=== PATIENT | female | born 1930 | race Caucasian/White ===

== ENCOUNTER 2016-08-14 15:20 | Inpatient (IN) | payer MEDICARE ==
[~2016-08-14] VITALS: Ht 157.5 cm; Wt 53.2 kg
[2016-08-14] MEDS ORDERED: RIVA10TA PO (15:37)
[2016-08-14] MEDS ORDERED: AMIO200T42 PO (15:37)
[2016-08-14] MEDS ORDERED: LEVO100T5 PO (15:37)
[2016-08-14] MEDS ORDERED: PRED5TAB25 PO (15:37)
[2016-08-14] MEDS ORDERED: SODIUM CHLORIDE 0.9% 1,000 ML IV ONE (15:44)
[2016-08-14] MEDS ORDERED: ONDANSETRON 2MG/ML, 2ML IVPush ONE (16:00)
[2016-08-14] MEDS ORDERED: SODIUM CHLORIDE 0.9%, 500ML IVBOLUS ONE (16:00)
[2016-08-14] MEDS ORDERED: MORPHINE SULFATE 4 MG/ML, 1ML IVPush PRN (16:00)
[2016-08-14] MEDS ORDERED: FAMOTIDINE 20 MG/2 ML IVP ONE (16:00)
[2016-08-14] MEDS ORDERED: ONDANSETRON 2MG/ML, 2ML ONE (16:02)
[2016-08-14] MEDS ORDERED: FAMOTIDINE 20 MG/2 ML ONE (16:02)
[2016-08-14] MEDS ORDERED: MORPHINE SULFATE 4 MG/ML, 1ML ONE (16:02)
[2016-08-14] MEDS ORDERED: HYDROmorphone 1 MG/ML, 1ML ONE (16:09)
[2016-08-14] MEDS ORDERED: HYDROmorphone 1 MG/ML, 1ML IV ONE (16:30)
[2016-08-14 16:36] LABS: BLOOD UREA NITROGEN 19 mg/dL (7-18)
[2016-08-14 16:42] LABS: ASPARTATE AMINO TRANSFERASE 11 U/L (15-37)
[2016-08-14 16:45] LABS: IS PT STATUS REG ER OR PRE ER? YES
[2016-08-14] MEDS ORDERED: DILTIAZEM 125 MG in DEXTROSE 5% 100 ML IV SCH (17:55)
[2016-08-14] MEDS ORDERED: DILTIAZEM 5 MG/ML, 5ML IV ONE (18:00)
[2016-08-14] MEDS ORDERED: NS + 20MEQ KCL 1,000 ML IV SCH (18:29)
[2016-08-14] MEDS ORDERED: DILTIAZEM 5 MG/ML, 5ML IVPush PRN (18:30)
[2016-08-14] MEDS ORDERED: HYDROcodone/APAP 5/325 TABLET PO PRN (18:30)
[2016-08-14] MEDS ORDERED: ACETAMINOPHEN 325 MG TABLET PO PRN (18:30)
[2016-08-14] MEDS: DILTIAZEM 60 MG TABLET PO SCH ×2 (18:30→21:00)
[2016-08-14] MEDS ORDERED: morphine SULFATE 10 MG/ML, 1ML IVPush PRN (18:30)
[2016-08-14] MEDS: NICOTINE 14MG/24 HR PATCH.TD24 TD SCH (18:30)
[2016-08-14] MEDS ORDERED: DOCUSATE 100 MG CAPSULE PO PRN (18:30)
[2016-08-14 20:42] VITALS: BP 88/58
[2016-08-14] MEDS ORDERED: PREDNISOLONE MC SCH (21:00)
[2016-08-14] MEDS: LACTULOSE 10 GM/15 ML UDC PO SCH (22:49)
[2016-08-14] MEDS ORDERED: PNEUMOCOCCAL 23 VACCINE IM-VACC ONE (23:30)
[2016-08-15] VITALS (9 sets, daily range): BP systolic 61–109; BP diastolic 41–73
[2016-08-15] MEDS: LACTULOSE 10 GM/15 ML UDC PO SCH (02:04)
[2016-08-15 05:39] LABS: BLOOD UREA NITROGEN 21 mg/dL (7-18)
[2016-08-15 05:48] LABS: IS PT STATUS REG ER OR PRE ER? NO
[2016-08-15] MEDS: LEVOTHYROXINE 100 MCG TABLET PO SCH (06:05)
[2016-08-15] MEDS ORDERED: MAGNESIUM SULFATE PMX 2GM/50ML 50 ML IV ONE (07:30)
[2016-08-15] MEDS ORDERED: BISACODYL 10 MG SUPP PR PRN (07:30)
[2016-08-15] MEDS ORDERED: FUROSEMIDE 20 MG/2 ML IV ONE (07:30)
[2016-08-15] MEDS ORDERED: RIVAROXABAN 10 MG TABLET PO SCH (09:00)
[2016-08-15] MEDS: POLYETHYLENE GLYCOL 17 GM PACKET PO PRN (09:07)
[2016-08-15] MEDS: AMIODARONE 200 MG TABLET PO SCH (09:08)
[2016-08-15] MEDS: DILTIAZEM 60 MG TABLET PO SCH ×3 (09:08→20:44)
[2016-08-15] MEDS: prednisOLONE 15 MG/5 ML ORAL SOLN PO SCH (09:08)
[2016-08-15] MEDS: SENNA/DOCUSATE TABLET PO SCH (09:08)
[2016-08-15] MEDS ORDERED: ALBUTEROL SULFATE 2.5 MG/3 ML ONE ×2 (11:01→14:12)
[2016-08-15] MEDS: ONDANSETRON 2MG/ML, 2ML IVPush PRN (14:03)
[2016-08-15] MEDS: CEFTRIAXONE PMX 1GM/50ML 50 ML IV SCH (14:26)
[2016-08-15] MEDS: ALBUTEROL SULFATE 2.5 MG/3 ML NPPB SCH ×2 (14:45→21:00)
[2016-08-15] MEDS: AZITHROMYCIN 500 MG in SODIUM CHLORIDE 0.9% 250 ML IV SCH (15:02)
[2016-08-15 15:57] LABS: ABG COLLECTION SITE RIGHT RADIAL; COLLATERAL CIRCULATION TESTING NORMAL
[2016-08-15] MEDS ORDERED: SODIUM CHLORIDE 0.9%, 500ML IVBOLUS ONE ×2 (16:00→17:00)
[2016-08-15 16:09] LABS: BLOOD UREA NITROGEN 18 mg/dL (7-18)
[2016-08-15] MEDS: NICOTINE 14MG/24 HR PATCH.TD24 TD SCH (18:21)
[2016-08-16 03:01] VITALS: BP 93/59
[2016-08-16 05:09] LABS: BLOOD UREA NITROGEN 18 mg/dL (7-18)
[2016-08-16] MEDS: LEVOTHYROXINE 100 MCG TABLET PO SCH (06:32)
[2016-08-16 08:56] VITALS: BP 92/60
[2016-08-16] MEDS: ALBUTEROL SULFATE 2.5 MG/3 ML NPPB SCH ×3 (09:00→20:49)
[2016-08-16] MEDS ORDERED: OMNIPAQUE 350 MG/ML, 100ML BOTTLE ONE (09:41)
[2016-08-16] MEDS: prednisOLONE 15 MG/5 ML ORAL SOLN PO SCH (09:55)
[2016-08-16] MEDS: SENNA/DOCUSATE TABLET PO SCH (09:55)
[2016-08-16] MEDS: AMIODARONE 200 MG TABLET PO SCH (09:55)
[2016-08-16] MEDS ORDERED: AMIODARONE 150 MG in DEXTROSE 5% 100 ML IV ONE (11:00)
[2016-08-16] MEDS ORDERED: FILTER 0.22 MICRON FOR AMIODARONE IV PRN (11:00)
[2016-08-16 13:51] VITALS: BP 71/37
[2016-08-16] MEDS: CEFTRIAXONE PMX 1GM/50ML 50 ML IV SCH (16:10)
[2016-08-16] MEDS: AZITHROMYCIN 500 MG in SODIUM CHLORIDE 0.9% 250 ML IV SCH (16:47)
[2016-08-16] MEDS: ONDANSETRON 2MG/ML, 2ML IVPush PRN (17:39)
[2016-08-16 17:50] VITALS: BP 111/78
[2016-08-16 17:58] VITALS: BP 106/71
[2016-08-16] MEDS: NICOTINE 14MG/24 HR PATCH.TD24 TD SCH (18:03)
[2016-08-16 18:39] VITALS: BP 119/80
[2016-08-16] MEDS: RIVAROXABAN 10 MG TABLET PO SCH (19:30)
[2016-08-17 01:15] VITALS: BP 105/65
[2016-08-17 05:05] LABS: BLOOD UREA NITROGEN 12 mg/dL (7-18)
[2016-08-17] MEDS: LEVOTHYROXINE 100 MCG TABLET PO SCH (06:33)
[2016-08-17] MEDS: ALBUTEROL SULFATE 2.5 MG/3 ML NPPB SCH ×3 (06:55→19:56)
[2016-08-17 07:46] VITALS: BP 93/56
[2016-08-17] MEDS: prednisOLONE 15 MG/5 ML ORAL SOLN PO SCH (09:10)
[2016-08-17] MEDS: AMIODARONE 200 MG TABLET PO SCH (09:10)
[2016-08-17] MEDS: SENNA/DOCUSATE TABLET PO SCH (09:10)
[2016-08-17 13:51] VITALS: BP 85/45
[2016-08-17] MEDS: DOXYCYCLINE 100 MG in DEXTROSE 5% 250 ML IV SCH (13:56)
[2016-08-17] MEDS: CEFTRIAXONE PMX 1GM/50ML 50 ML IV SCH (15:22)
[2016-08-17] MEDS: RIVAROXABAN 10 MG TABLET PO SCH (16:30)
[2016-08-17] MEDS: NICOTINE 14MG/24 HR PATCH.TD24 TD SCH (18:12)
[2016-08-17 18:54] VITALS: BP 98/62
[2016-08-18] MEDS: DOXYCYCLINE 100 MG in DEXTROSE 5% 250 ML IV SCH ×3 (00:06→23:56)
[2016-08-18 01:57] VITALS: BP 100/69
[2016-08-18] MEDS: LEVOTHYROXINE 100 MCG TABLET PO SCH (05:20)
[2016-08-18 05:38] LABS: BLOOD UREA NITROGEN 14 mg/dL (7-18)
[2016-08-18 07:10] VITALS: BP 97/63
[2016-08-18] MEDS: ALBUTEROL SULFATE 2.5 MG/3 ML NPPB SCH ×3 (09:38→20:29)
[2016-08-18 10:27] VITALS: BP 107/70
[2016-08-18] MEDS: AMIODARONE 200 MG TABLET PO SCH (10:33)
[2016-08-18] MEDS: SENNA/DOCUSATE TABLET PO SCH (10:33)
[2016-08-18] MEDS: prednisOLONE 15 MG/5 ML ORAL SOLN PO SCH (10:33)
[2016-08-18 13:27] VITALS: BP 115/70
[2016-08-18] MEDS: CEFTRIAXONE PMX 1GM/50ML 50 ML IV SCH (14:40)
[2016-08-18] MEDS: RIVAROXABAN 10 MG TABLET PO SCH (16:30)
[2016-08-18] MEDS: NICOTINE 14MG/24 HR PATCH.TD24 TD SCH (16:58)
[2016-08-18 18:25] VITALS: BP 99/63
[2016-08-19 01:58] VITALS: BP 99/64
[2016-08-19] MEDS: LEVOTHYROXINE 100 MCG TABLET PO SCH (06:15)
[2016-08-19] MEDS: ALBUTEROL SULFATE 2.5 MG/3 ML NPPB SCH ×3 (07:35→19:30)
[2016-08-19] MEDS: SENNA/DOCUSATE TABLET PO SCH (08:24)
[2016-08-19] MEDS: AMIODARONE 200 MG TABLET PO SCH (08:24)
[2016-08-19] MEDS: prednisOLONE 15 MG/5 ML ORAL SOLN PO SCH (08:25)
[2016-08-19 08:31] VITALS: BP 110/72
[2016-08-19] MEDS: DOXYCYCLINE 100 MG in DEXTROSE 5% 250 ML IV SCH ×2 (12:22→23:31)
[2016-08-19] MEDS: POLYETHYLENE GLYCOL 17 GM PACKET PO PRN (13:52)
[2016-08-19 13:54] VITALS: BP 108/73
[2016-08-19] MEDS: CEFTRIAXONE PMX 1GM/50ML 50 ML IV SCH (13:57)
[2016-08-19] MEDS: RIVAROXABAN 10 MG TABLET PO SCH (16:30)
[2016-08-19] MEDS: NICOTINE 14MG/24 HR PATCH.TD24 TD SCH (17:29)
[2016-08-19 19:49] VITALS: BP 122/79
[2016-08-20 01:43] VITALS: BP 138/90
[2016-08-20] MEDS: LEVOTHYROXINE 100 MCG TABLET PO SCH (05:23)
[2016-08-20 07:10] VITALS: BP 115/80
[2016-08-20] MEDS: ALBUTEROL SULFATE 2.5 MG/3 ML NPPB SCH ×3 (08:05→19:20)
[2016-08-20] MEDS ORDERED: METOPROLOL TARTRATE 50 MG TABLET ONE (08:07)
[2016-08-20] MEDS: METOPROLOL TARTRATE 25 MG TABLET PO SCH ×2 (08:17→17:31)
[2016-08-20] MEDS: AMIODARONE 200 MG TABLET PO SCH (08:17)
[2016-08-20] MEDS: prednisOLONE 15 MG/5 ML ORAL SOLN PO SCH (08:17)
[2016-08-20] MEDS: SENNA/DOCUSATE TABLET PO SCH (08:17)
[2016-08-20] MEDS: DOXYCYCLINE 100 MG in DEXTROSE 5% 250 ML IV SCH (11:28)
[2016-08-20] MEDS: CEFTRIAXONE PMX 1GM/50ML 50 ML IV SCH (13:59)
[2016-08-20 14:10] VITALS: BP 91/61
[2016-08-20] MEDS: RIVAROXABAN 10 MG TABLET PO SCH (16:30)
[2016-08-20] MEDS: NICOTINE 14MG/24 HR PATCH.TD24 TD SCH (17:38)
[2016-08-20 20:21] VITALS: BP 108/67
[2016-08-21] MEDS: DOXYCYCLINE 100 MG in DEXTROSE 5% 250 ML IV SCH ×2 (00:02→12:41)
[2016-08-21 02:50] VITALS: BP 115/77
[2016-08-21 05:58] VITALS: BP 100/72
[2016-08-21] MEDS: METOPROLOL TARTRATE 25 MG TABLET PO SCH ×2 (05:58→17:39)
[2016-08-21] MEDS: LEVOTHYROXINE 100 MCG TABLET PO SCH (06:00)
[2016-08-21 06:57] VITALS: BP_SYST 106; BP_DIAS 63; BP_DIAS 73
[2016-08-21] MEDS: ALBUTEROL SULFATE 2.5 MG/3 ML NPPB SCH ×2 (09:34→15:46)
[2016-08-21] MEDS: AMIODARONE 200 MG TABLET PO SCH (10:01)
[2016-08-21] MEDS: SENNA/DOCUSATE TABLET PO SCH (10:01)
[2016-08-21] MEDS: prednisOLONE 15 MG/5 ML ORAL SOLN PO SCH (10:01)
[2016-08-21 13:13] VITALS: BP 94/62
[2016-08-21] MEDS: CEFTRIAXONE PMX 1GM/50ML 50 ML IV SCH (14:27)
[2016-08-21] MEDS: RIVAROXABAN 10 MG TABLET PO SCH (16:30)
[2016-08-21] MEDS: NICOTINE 14MG/24 HR PATCH.TD24 TD SCH (17:39)
[2016-08-21 19:03] VITALS: BP 104/67
[2016-08-21] MEDS ORDERED: ALBUTEROL SULFATE 2.5 MG/3 ML NPPB PRN (21:00)
[2016-08-21] MEDS: ONDANSETRON 2MG/ML, 2ML IVPush PRN (22:02)
[2016-08-22] MEDS: DOXYCYCLINE 100 MG in DEXTROSE 5% 250 ML IV SCH (00:24)
[2016-08-22 01:27] VITALS: BP 114/73
[2016-08-22] MEDS: METOPROLOL TARTRATE 25 MG TABLET PO SCH (05:35)
[2016-08-22] MEDS: LEVOTHYROXINE 100 MCG TABLET PO SCH (05:35)
[2016-08-22] MEDS ORDERED: CEFD300C37 PO (07:35)
[2016-08-22] MEDS ORDERED: LACT1CAP24 PO (07:35)
[2016-08-22] MEDS ORDERED: PRED15SO3 PO (07:35)
[2016-08-22] MEDS ORDERED: NICO1PAT4 TD (07:35)
[2016-08-22] MEDS ORDERED: SENN1TAB7 PO (07:35)
[2016-08-22] MEDS ORDERED: DOXY100C2 PO (07:35)
[2016-08-22] MEDS ORDERED: METO25TA91 PO (07:40)
[2016-08-22] MEDS ORDERED: POLY17PO5 PO (07:48)
[2016-08-22] MEDS ORDERED: METOPROLOL SUCCINATE 25 MG TAB.ER.24H PO SCH (08:00)
[2016-08-22] MEDS ORDERED: FLUC200T PO (08:02)
[2016-08-22 08:22] VITALS: BP 87/57
[2016-08-22] MEDS: prednisOLONE 15 MG/5 ML ORAL SOLN PO SCH (10:33)
[2016-08-22] MEDS: AMIODARONE 200 MG TABLET PO SCH (10:34)
[2016-08-22] MEDS: SENNA/DOCUSATE TABLET PO SCH (10:34)
== END 2016-08-22 12:00 | DRG 871 ==
LOC: ED 17:51 → EDIP 17:52 → SUATTDRO 18:20 → ED 18:26 → 5SO 20:19
PROVIDERS: ADMIT Family Medicine
PROC: 0T9B70Z Drainage of Bladder with Drainage Device, Via Natural or Artificial Opening (ICD-10-PCS; principal; 2016-08-14)
DX: A41.9 Sepsis, unspecified organism (principal); J18.9 Pneumonia, unspecified organism; E43 Unspecified severe protein-calorie malnutrition; I48.92 Unspecified atrial flutter; J44.0 Chronic obstructive pulmonary disease with (acute) lower respiratory infection; D68.69 Other thrombophilia; K43.0 Incisional hernia with obstruction, without gangrene; E03.9 Hypothyroidism, unspecified; E78.5 Hyperlipidemia, unspecified; F17.200 Nicotine dependence, unspecified, uncomplicated; I07.1 Rheumatic tricuspid insufficiency; I10 Essential (primary) hypertension; I27.2 Other secondary pulmonary hypertension; I48.2 Chronic atrial fibrillation; K52.9 Noninfective gastroenteritis and colitis, unspecified; Z96.659 Presence of unspecified artificial knee joint; E66.9 Obesity, unspecified; Z66 Do not resuscitate; Z79.01 Long term (current) use of anticoagulants; Z82.3 Family history of stroke; Z82.49 Family history of ischemic heart disease and other diseases of the circulatory system; Z99.81 Dependence on supplemental oxygen; Z79.899 Other long term (current) drug therapy; Z90.11 Acquired absence of right breast and nipple; Z88.5 Allergy status to narcotic agent; Z68.21 Body mass index [BMI] 21.0-21.9, adult
CPT/HCPCS: 36415; 36600; 71010; 74000; 74022; 74177; 80048; 80053; 81003; 82803; 82962; 83605; 83690; 83735; 83880; 84443; 84481; 84484; 85025; 85610; 87040; 87070; 87205; 90732; 93005; 93306; 94640; 96374; 96375; J0456; J0696; J1170; J2405; J3480; J7060; J7613; Q9967; J0282; J1940; J3475; J7030; J7040; J7050; J7510; S0028

== ENCOUNTER 2016-10-10 19:37 | Emergency (ER) | payer MEDICARE ==
[~2016-10-10] VITALS: Ht 157.5 cm; Wt 52.4 kg
[~2016-10-10 19:37] MED LIST: AMIO200T42 PO; CEFD300C37 PO; DOXY100C2 PO; FLUC200T PO; LACT1CAP24 PO; LEVO100T5 PO; METO25TA91 PO; NICO1PAT4 TD; POLY17PO5 PO; PRED15SO3 PO; PRED5TAB25 PO; RIVA10TA PO; SENN1TAB7 PO
[2016-10-10] MEDS ORDERED: SODIUM CHLORIDE FLUSH 10ML SYR IVF ONE (20:00)
[2016-10-10] MEDS ORDERED: methylPREDNISolone SOD SUCC 125 MG/2 ML IVP ONE (20:00)
[2016-10-10] MEDS ORDERED: PLEASE ENTER HEIGHT AND WEIGHT MC SCH (20:00)
[2016-10-10 20:13] LABS: ASPARTATE AMINO TRANSFERASE 11 U/L (15-37); BLOOD UREA NITROGEN 11 mg/dL (7-18)
[2016-10-10 20:20] LABS: IS PT STATUS REG ER OR PRE ER? YES
[2016-10-10] MEDS ORDERED: methylPREDNISolone SOD SUCC 125 MG/2 ML ONE (21:18)
[2016-10-10 21:30] VITALS: BP 117/70
== END 2016-10-10 22:20 | disposition home or self-care (01) ==
LOC: ED 20:54
DX: J44.1 Chronic obstructive pulmonary disease with (acute) exacerbation (principal); I10 Essential (primary) hypertension; I48.91 Unspecified atrial fibrillation; F17.210 Nicotine dependence, cigarettes, uncomplicated
CPT/HCPCS: 36415; 71010; 80053; 83605; 83880; 84484; 85025; 93005; 96374; 99285; J2930

== ENCOUNTER 2017-10-06 12:53 | Inpatient (IN) | payer MEDICARE ==
[~2017-10-06] VITALS: Ht 157.5 cm; Wt 61.0 kg
[~2017-10-06 12:53] MED LIST changes: +ALBU18HF INH; +AZIT500T5 PO; +CARV12.5 PO; +CARV6.252 PO; +DILT180C53 PO; +FLUT1BLS INH; +METH4TAB2 PO; +NICO-486 TD; -NICO1PAT4 TD; +PRED10TA PO; +PRED20TA PO; +RIVA15TA PO
[2017-10-06] MEDS ORDERED: methylPREDNISolone SOD SUCC 125 MG/2 ML ONE (13:17)
[2017-10-06] MEDS ORDERED: ALBUTEROL/IPRATROPIUM 2.5MG/0.5MG, 3 ML ONE (13:29)
[2017-10-06] MEDS ORDERED: methylPREDNISolone SOD SUCC 125 MG/2 ML IVP ONE (13:30)
[2017-10-06] MEDS ORDERED: SODIUM CHLORIDE FLUSH 10ML SYR IVF ONE (13:30)
[2017-10-06 13:33] LABS: BASOPHILS # (AUTO) 0.01 x10^3/uL (0-0.1); BASOPHILS % (AUTO) 0 % (0-1); EOSINOPHILS # (AUTO) 0.02 x10^3/uL (0-0.4); EOSINOPHILS % (AUTO) 0 % (1-7); LYMPHOCYTES % (AUTO) 29 % (22-44); MD NO; MEAN CORPUSCULAR HEMOGLOBIN 29.2 pg (27.0-34.8); MEAN CORPUSCULAR HGB CONC 32.9 g/dL (32.4-35.8); MEAN CORPUSCULAR VOLUME 88.9 fL (80-100); MEAN PLATELET VOLUME 8.5 fL (7.4-10.4); MONOCYTES # (AUTO) 0.47 x10^3/uL (0.2-0.8); MONOCYTES % (AUTO) 8 % (2-9); NEUTROPHILS # (AUTO) 3.94 x10^3/uL (1.8-6.8); NEUTROPHILS % (AUTO) 63 % (42-75); PLATELET COUNT 208 x10^3/uL (130-400); RED BLOOD COUNT 4.78 x10^6/uL (3.82-5.3); RED CELL DISTRIBUTION WIDTH 13.9 % (9.6-15.2)
[2017-10-06 13:38] LABS: INTERNATIONAL NORMALIZED RATIO 1.1 (0.93-1.1); PROTHROMBIN TIME 11.4 Seconds (9.6-11.5)
[2017-10-06 13:42] LABS: ALANINE AMINOTRANSFERASE 16 U/L (12-78); ALBUMIN 3.2 g/dL (3.4-5.0); ANION GAP 6 mmol/L (5-15); CALCIUM 9.1 mg/dL (8.5-10.1); CHLORIDE 99 mmol/L (98-107); CREATININE 0.75 mg/dL (0.55-1.02)
[2017-10-06 13:46] LABS: ALKALINE PHOSPHATASE 71 U/L (45-117); BILIRUBIN,TOTAL 0.6 mg/dL (0.2-1.0); TOTAL PROTEIN 6.5 g/dL (6.4-8.2); TROPONIN I < 0.015 ng/mL (0.000-0.045)
[2017-10-06] MEDS ORDERED: ALBUTEROL/IPRATROPIUM 2.5MG/0.5MG, 3 ML NEB ONE (14:00)
[2017-10-06] MEDS ORDERED: CEFTRIAXONE PMX 1GM/50ML 50 ML IVPB ONE (14:30)
[2017-10-06] MEDS ORDERED: AZITHROMYCIN 500 MG in SODIUM CHLORIDE 0.9% 250 ML IVPB ONE (14:30)
[2017-10-06] MEDS ORDERED: OMEP10CA4 PO (14:33)
[2017-10-06] MEDS ORDERED: LISI2.5T PO (14:33)
[2017-10-06] MEDS ORDERED: SIMV5TAB5 PO (14:33)
[2017-10-06] MEDS ORDERED: METO25TA35 PO (14:33)
[2017-10-06] MEDS ORDERED: DIGO125T PO (14:33)
[2017-10-06] MEDS ORDERED: ONDANSETRON 2MG/ML, 2ML IVPush PRN (15:30)
[2017-10-06] MEDS ORDERED: POLYETHYLENE GLYCOL 17 GM PACKET PO PRN (15:30)
[2017-10-06] MEDS ORDERED: hydrALAzine 20 MG/ML, 1ML IVPush PRN (15:30)
[2017-10-06] MEDS ORDERED: CEFTRIAXONE PMX 1GM/50ML 50 ML IV SCH (15:30)
[2017-10-06] MEDS ORDERED: ACETAMINOPHEN 325 MG TABLET PO PRN (15:30)
[2017-10-06] MEDS ORDERED: BISACODYL 10 MG SUPP PR PRN (15:30)
[2017-10-06 15:35] VITALS: BP 118/77
[2017-10-06] MEDS ORDERED: ENOXAPARIN 40 MG/0.4 ML SQ SCH (16:00)
[2017-10-06] MEDS ORDERED: Albuterol Sulfate (Ventolin Hfa) INH PRN (16:00)
[2017-10-06] MEDS: DOXYCYCLINE 100 MG in DEXTROSE 5% 250 ML IV SCH (17:24)
[2017-10-06] MEDS: ALBUTEROL/IPRATROPIUM 2.5MG/0.5MG, 3 ML NPPB SCH (18:35)
[2017-10-06 20:04] VITALS: BP 93/55
[2017-10-06] MEDS: CARVEDILOL 12.5 MG TABLET PO SCH (20:41)
[2017-10-06] MEDS: SODIUM CHLORIDE FLUSH 10ML SYR IVF SCH (20:42)
[2017-10-06] MEDS: GUAIFENESIN ER 600 MG TABLET PO SCH (20:42)
[2017-10-06] MEDS: methylPREDNISolone SOD SUCC 125 MG/2 ML IVPush SCH (20:42)
[2017-10-07] VITALS (8 sets, daily range): BP systolic 89–119; BP diastolic 52–76
[2017-10-07] MEDS: methylPREDNISolone SOD SUCC 125 MG/2 ML IVPush SCH ×4 (02:07→21:47)
[2017-10-07 05:07] LABS: BASOPHILS # (AUTO) 0.01 x10^3/uL (0-0.1); BASOPHILS % (AUTO) 0 % (0-1); EOSINOPHILS % (AUTO) 0 % (1-7); LYMPHOCYTES # (AUTO) 0.51 x10^3/uL (1-3.4); LYMPHOCYTES % (AUTO) 9 % (22-44); MD NO; MEAN CORPUSCULAR HGB CONC 33.1 g/dL (32.4-35.8); MEAN CORPUSCULAR VOLUME 87.8 fL (80-100); MEAN PLATELET VOLUME 8.6 fL (7.4-10.4); MONOCYTES # (AUTO) 0.04 x10^3/uL (0.2-0.8); MONOCYTES % (AUTO) 1 % (2-9); NEUTROPHILS # (AUTO) 4.95 x10^3/uL (1.8-6.8); NEUTROPHILS % (AUTO) 90 % (42-75); PLATELET COUNT 193 x10^3/uL (130-400); RED BLOOD COUNT 4.55 x10^6/uL (3.82-5.3); RED CELL DISTRIBUTION WIDTH 13.8 % (9.6-15.2)
[2017-10-07 05:13] LABS: ANION GAP 6 mmol/L (5-15); CHLORIDE 102 mmol/L (98-107)
[2017-10-07 05:17] LABS: CREATININE 1.09 mg/dL (0.55-1.02)
[2017-10-07] MEDS: ALBUTEROL/IPRATROPIUM 2.5MG/0.5MG, 3 ML NPPB SCH ×4 (07:30→18:50)
[2017-10-07] MEDS: DOXYCYCLINE 100 MG in DEXTROSE 5% 250 ML IV SCH ×2 (07:37→22:08)
[2017-10-07] MEDS: DILTIAZEM CD 180 MG CAP.ER.24H PO SCH (09:00)
[2017-10-07] MEDS: CARVEDILOL 12.5 MG TABLET PO SCH (09:00)
[2017-10-07] MEDS ORDERED: CARVEDILOL 6.25 MG TABLET ONE (09:58)
[2017-10-07] MEDS: ENOXAPARIN 30 MG/0.3 ML SQ SCH (10:15)
[2017-10-07] MEDS: GUAIFENESIN ER 600 MG TABLET PO SCH ×2 (10:15→21:46)
[2017-10-07] MEDS: SODIUM CHLORIDE FLUSH 10ML SYR IVF SCH ×2 (10:16→21:00)
[2017-10-07] MEDS ORDERED: SODIUM CHLORIDE 0.9%, 500ML IVBOLUS ONE ×2 (10:30→15:00)
[2017-10-07] MEDS: CEFTRIAXONE PMX 1GM/50ML 50 ML IV SCH (14:26)
[2017-10-07] MEDS: FLUTICASONE/VILANTEROL 200-25MCG/INH INH SCH (14:26)
[2017-10-07] MEDS: DOCUSATE 100 MG CAPSULE PO PRN (21:47)
[2017-10-08] VITALS (7 sets, daily range): BP systolic 82–115; BP diastolic 47–98
[2017-10-08] MEDS: CARVEDILOL 12.5 MG TABLET PO SCH ×2 (00:26→08:16)
[2017-10-08] MEDS: methylPREDNISolone SOD SUCC 125 MG/2 ML IVPush SCH ×4 (02:56→21:14)
[2017-10-08] MEDS: ALBUTEROL/IPRATROPIUM 2.5MG/0.5MG, 3 ML NPPB SCH ×4 (06:55→19:16)
[2017-10-08 07:34] LABS: MEAN CORPUSCULAR HEMOGLOBIN 28.8 pg (27.0-34.8); MEAN CORPUSCULAR HGB CONC 32.2 g/dL (32.4-35.8); MEAN CORPUSCULAR VOLUME 89.5 fL (80-100); MEAN PLATELET VOLUME 8.6 fL (7.4-10.4); PLATELET COUNT 205 x10^3/uL (130-400); RED CELL DISTRIBUTION WIDTH 14.2 % (9.6-15.2)
[2017-10-08 07:43] LABS: ALBUMIN 2.9 g/dL (3.4-5.0); ANION GAP 6 mmol/L (5-15); CALCIUM 8.9 mg/dL (8.5-10.1); CHLORIDE 108 mmol/L (98-107)
[2017-10-08 07:44] LABS: CREATININE 0.79 mg/dL (0.55-1.02)
[2017-10-08 07:58] LABS: BASOPHILS # (AUTO) 0.04 x10^3/uL (0-0.1); BASOPHILS % (AUTO) 0 % (0-1); EOSINOPHILS % (AUTO) 0 % (1-7); LYMPHOCYTES # (AUTO) 0.84 x10^3/uL (1-3.4); LYMPHOCYTES % (AUTO) 6 % (22-44); MD SCAN; MONOCYTES # (AUTO) 0.24 x10^3/uL (0.2-0.8); MONOCYTES % (AUTO) 2 % (2-9); NEUTROPHILS # (AUTO) 14.11 x10^3/uL (1.8-6.8); NEUTROPHILS % (AUTO) 93 % (42-75)
[2017-10-08] MEDS: DOXYCYCLINE 100 MG in DEXTROSE 5% 250 ML IV SCH ×2 (08:16→21:14)
[2017-10-08] MEDS: DILTIAZEM CD 180 MG CAP.ER.24H PO SCH (08:17)
[2017-10-08] MEDS: GUAIFENESIN ER 600 MG TABLET PO SCH ×2 (08:17→21:15)
[2017-10-08] MEDS: ENOXAPARIN 30 MG/0.3 ML SQ SCH (08:17)
[2017-10-08] MEDS: SODIUM CHLORIDE FLUSH 10ML SYR IVF SCH ×2 (08:18→21:15)
[2017-10-08] MEDS: FLUTICASONE/VILANTEROL 200-25MCG/INH INH SCH (08:18)
[2017-10-08] MEDS: BISACODYL 5 MG EC TABLET PO SCH ×2 (10:57→21:24)
[2017-10-08] MEDS: SODIUM CHLORIDE NASAL SPRAY 45ML BOTTLE NAS PRN (13:47)
[2017-10-08] MEDS ORDERED: DIGOXIN 0.25 MG/ML, 2ML IVPush ONE ×3 (14:30→18:00)
[2017-10-08] MEDS ORDERED: SODIUM CHLORIDE 0.9%, 500ML IVBOLUS ONE (15:00)
[2017-10-08] MEDS: CEFTRIAXONE PMX 1GM/50ML 50 ML IV SCH (18:02)
[2017-10-09] VITALS (10 sets, daily range): BP systolic 97–121; BP diastolic 61–75
[2017-10-09] MEDS: methylPREDNISolone SOD SUCC 125 MG/2 ML IVPush SCH ×4 (02:00→21:48)
[2017-10-09] MEDS: SODIUM CHLORIDE NASAL SPRAY 45ML BOTTLE NAS PRN (02:47)
[2017-10-09] MEDS: ALBUTEROL/IPRATROPIUM 2.5MG/0.5MG, 3 ML NPPB SCH ×4 (07:30→19:34)
[2017-10-09] MEDS: DILTIAZEM CD 180 MG CAP.ER.24H PO SCH ×2 (09:29→11:40)
[2017-10-09] MEDS: DOXYCYCLINE 100 MG in DEXTROSE 5% 250 ML IV SCH ×2 (09:29→21:48)
[2017-10-09] MEDS: SODIUM CHLORIDE FLUSH 10ML SYR IVF SCH ×2 (09:30→21:48)
[2017-10-09] MEDS: GUAIFENESIN ER 600 MG TABLET PO SCH ×2 (09:30→21:48)
[2017-10-09] MEDS: ENOXAPARIN 40 MG/0.4 ML SQ SCH ×2 (09:30→10:59)
[2017-10-09] MEDS: FLUTICASONE/VILANTEROL 200-25MCG/INH INH SCH (09:35)
[2017-10-09] MEDS ORDERED: TIOT18CA INH (10:39)
[2017-10-09] MEDS ORDERED: OMEP-110 PO (10:39)
[2017-10-09] MEDS ORDERED: ALBU0.63 NEB (10:39)
[2017-10-09] MEDS ORDERED: SENN-87 PO (10:39)
[2017-10-09] MEDS ORDERED: RIVA15TA PO (10:39)
[2017-10-09] MEDS: DOCUSATE 100 MG CAPSULE PO PRN (11:40)
[2017-10-09 12:11] LABS: BASOPHILS % (AUTO) 0 % (0-1); EOSINOPHILS % (AUTO) 0 % (1-7); LYMPHOCYTES # (AUTO) 0.44 x10^3/uL (1-3.4); LYMPHOCYTES % (AUTO) 4 % (22-44); MD NO; MEAN CORPUSCULAR HEMOGLOBIN 29.4 pg (27.0-34.8); MEAN CORPUSCULAR HGB CONC 32.4 g/dL (32.4-35.8); MEAN CORPUSCULAR VOLUME 90.8 fL (80-100); MEAN PLATELET VOLUME 8.6 fL (7.4-10.4); MONOCYTES # (AUTO) 0.43 x10^3/uL (0.2-0.8); MONOCYTES % (AUTO) 4 % (2-9); NEUTROPHILS # (AUTO) 10.95 x10^3/uL (1.8-6.8); NEUTROPHILS % (AUTO) 93 % (42-75); PLATELET COUNT 198 x10^3/uL (130-400); RED BLOOD COUNT 4.73 x10^6/uL (3.82-5.3); RED CELL DISTRIBUTION WIDTH 14.6 % (9.6-15.2)
[2017-10-09 12:41] LABS: ALBUMIN 2.8 g/dL (3.4-5.0); ANION GAP 8 mmol/L (5-15); CALCIUM 8.9 mg/dL (8.5-10.1); CHLORIDE 104 mmol/L (98-107); CREATININE 0.88 mg/dL (0.55-1.02)
[2017-10-09] MEDS ORDERED: DIGOXIN 0.25 MG/ML, 2ML IVPush ONE (13:00)
[2017-10-09] MEDS ORDERED: POTASSIUM CHLORIDE 20 MEQ TAB.ER.PRT PO ONE (13:00)
[2017-10-09] MEDS ORDERED: DILTIAZEM 30 MG TABLET PO ONE (13:30)
[2017-10-09] MEDS ORDERED: MAGNESIUM SULFATE/D5W 100 ML IV ONE (14:00)
[2017-10-09] MEDS ORDERED: MAGNESIUM SULFATE 1 GM in SODIUM CHLORIDE 0.9% 50 ML IV ONE (14:00)
[2017-10-09] MEDS ORDERED: DIGOXIN 0.25 MG/ML, 2ML IV ONE ×2 (15:30→21:30)
[2017-10-09] MEDS ORDERED: VERAPAMIL 2.5 MG/ML, 2ML IVPush ONE (16:30)
[2017-10-09] MEDS: CEFTRIAXONE 1,000 MG in SODIUM CHLORIDE 0.9% 50 ML IV SCH (18:05)
[2017-10-09] MEDS: RIVAROXABAN 15 MG TABLET PO SCH (18:05)
[2017-10-09] MEDS ORDERED: VERAPAMIL 2.5 MG/ML, 2ML IVPush PRN (18:30)
[2017-10-09 18:46] LABS: ANION GAP 7 mmol/L (5-15); CALCIUM 8.9 mg/dL (8.5-10.1); CHLORIDE 104 mmol/L (98-107)
[2017-10-09 21:28] LABS: TROPONIN I < 0.015 ng/mL (0.000-0.045)
[2017-10-10 02:06] VITALS: BP 128/75
[2017-10-10] MEDS: methylPREDNISolone SOD SUCC 125 MG/2 ML IVPush SCH ×2 (03:28→10:02)
[2017-10-10 04:13] LABS: TROPONIN I 0.023 ng/mL (0.000-0.045)
[2017-10-10 06:18] LABS: MEAN CORPUSCULAR HEMOGLOBIN 29.5 pg (27.0-34.8); MEAN CORPUSCULAR HGB CONC 32.9 g/dL (32.4-35.8); MEAN CORPUSCULAR VOLUME 89.7 fL (80-100); MEAN PLATELET VOLUME 8.6 fL (7.4-10.4); PLATELET COUNT 183 x10^3/uL (130-400); RED BLOOD COUNT 4.58 x10^6/uL (3.82-5.3); RED CELL DISTRIBUTION WIDTH 14.5 % (9.6-15.2)
[2017-10-10 06:28] LABS: ALANINE AMINOTRANSFERASE 73 U/L (12-78); ALBUMIN 2.5 g/dL (3.4-5.0); ANION GAP 3 mmol/L (5-15); CALCIUM 8.7 mg/dL (8.5-10.1); CHLORIDE 108 mmol/L (98-107)
[2017-10-10 06:31] LABS: BASOPHILS # (AUTO) 0.01 x10^3/uL (0-0.1); BASOPHILS % (AUTO) 0 % (0-1); EOSINOPHILS % (AUTO) 0 % (1-7); LYMPHOCYTES # (AUTO) 0.43 x10^3/uL (1-3.4); LYMPHOCYTES % (AUTO) 5 % (22-44); MD SCAN; MONOCYTES # (AUTO) 0.17 x10^3/uL (0.2-0.8); MONOCYTES % (AUTO) 2 % (2-9); NEUTROPHILS # (AUTO) 7.81 x10^3/uL (1.8-6.8); NEUTROPHILS % (AUTO) 93 % (42-75)
[2017-10-10 06:42] LABS: ALKALINE PHOSPHATASE 57 U/L (45-117); BILIRUBIN,TOTAL 0.2 mg/dL (0.2-1.0); TOTAL PROTEIN 5.4 g/dL (6.4-8.2)
[2017-10-10] MEDS: ALBUTEROL/IPRATROPIUM 2.5MG/0.5MG, 3 ML NPPB SCH ×4 (07:00→20:45)
[2017-10-10 07:12] VITALS: BP 116/73
[2017-10-10] MEDS: TEMPLATE NON-FORMULARY MED. (Tiotropium Bromide** (Spiriva**) 18 MCG) INH SCH (09:00)
[2017-10-10] MEDS: FLUTICASONE/VILANTEROL 200-25MCG/INH INH SCH (09:00)
[2017-10-10] MEDS ORDERED: TEMPLATE NON-FORMULARY MED. (Rivaroxaban** (Xarelto**) 15 MG) PO SCH (09:00)
[2017-10-10] MEDS: GUAIFENESIN ER 600 MG TABLET PO SCH ×2 (09:43→21:07)
[2017-10-10] MEDS: OMEPRAZOLE 20 MG CAPSULE.DR PO SCH (09:43)
[2017-10-10] MEDS: RIVAROXABAN 15 MG TABLET PO SCH (09:43)
[2017-10-10] MEDS: DOXYCYCLINE 100 MG in DEXTROSE 5% 250 ML IV SCH ×2 (09:43→21:17)
[2017-10-10] MEDS: BISACODYL 5 MG EC TABLET PO SCH (09:43)
[2017-10-10] MEDS: SODIUM CHLORIDE FLUSH 10ML SYR IVF SCH ×2 (09:44→21:00)
[2017-10-10] MEDS ORDERED: SODIUM CHLORIDE 0.9% 1,000 ML IV SCH (10:00)
[2017-10-10] MEDS: DILTIAZEM CD 180 MG CAP.ER.24H PO SCH (10:01)
[2017-10-10] MEDS ORDERED: PROPOFOL 10 MG/ML, 20ML ONE (12:08)
[2017-10-10] MEDS: AMIODARONE 150 MG in DEXTROSE 5% 100 ML IV ONE (12:30)
[2017-10-10] MEDS ORDERED: FILTER 0.22 MICRON FOR AMIODARONE IV PRN (12:30)
[2017-10-10] MEDS ORDERED: SODIUM CHLORIDE 0.9%, 250ML IVBOLUS ONE (13:00)
[2017-10-10 14:48] VITALS: BP 114/65
[2017-10-10] MEDS: CEFTRIAXONE 1,000 MG in SODIUM CHLORIDE 0.9% 50 ML IV SCH (18:00)
[2017-10-10 19:14] VITALS: BP 93/56
[2017-10-10] MEDS: AMIODARONE 200 MG TABLET PO SCH (21:07)
[2017-10-11 00:49] VITALS: BP 109/65
[2017-10-11 03:49] LABS: ALBUMIN 2.5 g/dL (3.4-5.0); ANION GAP 4 mmol/L (5-15); CALCIUM 8.5 mg/dL (8.5-10.1); CHLORIDE 106 mmol/L (98-107); CREATININE 0.86 mg/dL (0.55-1.02)
[2017-10-11] MEDS: ALBUTEROL/IPRATROPIUM 2.5MG/0.5MG, 3 ML NPPB SCH ×4 (07:00→19:36)
[2017-10-11 08:27] VITALS: BP 123/74
[2017-10-11] MEDS: TEMPLATE NON-FORMULARY MED. (Tiotropium Bromide** (Spiriva**) 18 MCG) INH SCH (09:00)
[2017-10-11] MEDS: FLUTICASONE/VILANTEROL 200-25MCG/INH INH SCH (09:00)
[2017-10-11] MEDS: SODIUM CHLORIDE FLUSH 10ML SYR IVF SCH ×2 (09:00→21:02)
[2017-10-11] MEDS: DILTIAZEM CD 180 MG CAP.ER.24H PO SCH (09:02)
[2017-10-11] MEDS: BISACODYL 5 MG EC TABLET PO SCH (09:03)
[2017-10-11] MEDS: OMEPRAZOLE 20 MG CAPSULE.DR PO SCH (09:03)
[2017-10-11] MEDS: GUAIFENESIN ER 600 MG TABLET PO SCH ×2 (09:03→21:03)
[2017-10-11] MEDS: AMIODARONE 200 MG TABLET PO SCH ×2 (09:03→21:03)
[2017-10-11] MEDS: RIVAROXABAN 15 MG TABLET PO SCH (09:03)
[2017-10-11] MEDS: DOXYCYCLINE 100 MG in DEXTROSE 5% 250 ML IV SCH ×2 (09:30→21:02)
[2017-10-11 12:50] VITALS: BP 98/62
[2017-10-11] MEDS: CEFTRIAXONE 1,000 MG in SODIUM CHLORIDE 0.9% 50 ML IV SCH (17:24)
[2017-10-11 19:27] VITALS: BP 95/57
[2017-10-12 02:54] VITALS: BP 92/49
[2017-10-12] MEDS: ALBUTEROL/IPRATROPIUM 2.5MG/0.5MG, 3 ML NPPB SCH ×4 (07:00→20:00)
[2017-10-12 07:20] LABS: ALBUMIN 2.2 g/dL (3.4-5.0); ANION GAP 3 mmol/L (5-15); CALCIUM 8.3 mg/dL (8.5-10.1); CHLORIDE 109 mmol/L (98-107); CREATININE 0.84 mg/dL (0.55-1.02)
[2017-10-12 07:35] VITALS: BP 93/53
[2017-10-12] MEDS: TEMPLATE NON-FORMULARY MED. (Tiotropium Bromide** (Spiriva**) 18 MCG) INH SCH (08:00)
[2017-10-12] MEDS: FLUTICASONE/VILANTEROL 200-25MCG/INH INH SCH (08:31)
[2017-10-12] MEDS: DILTIAZEM CD 180 MG CAP.ER.24H PO SCH (08:34)
[2017-10-12] MEDS: GUAIFENESIN ER 600 MG TABLET PO SCH ×2 (08:35→20:35)
[2017-10-12] MEDS: RIVAROXABAN 15 MG TABLET PO SCH (08:35)
[2017-10-12] MEDS: BISACODYL 5 MG EC TABLET PO SCH (08:35)
[2017-10-12] MEDS: OMEPRAZOLE 20 MG CAPSULE.DR PO SCH (08:35)
[2017-10-12] MEDS: AMIODARONE 200 MG TABLET PO SCH ×2 (08:37→20:35)
[2017-10-12] MEDS: DOXYCYCLINE 100 MG in DEXTROSE 5% 250 ML IV SCH ×2 (08:46→20:35)
[2017-10-12] MEDS: SODIUM CHLORIDE FLUSH 10ML SYR IVF SCH ×2 (08:47→20:35)
[2017-10-12 14:26] VITALS: BP 93/53
[2017-10-12 16:08] VITALS: BP 108/68
[2017-10-12] MEDS: CEFTRIAXONE 1,000 MG in SODIUM CHLORIDE 0.9% 50 ML IV SCH (18:25)
[2017-10-12 18:56] VITALS: BP 99/54
[2017-10-13 00:50] VITALS: BP 115/63
[2017-10-13 05:33] LABS: BASOPHILS # (AUTO) 0.02 x10^3/uL (0-0.1); BASOPHILS % (AUTO) 0 % (0-1); EOSINOPHILS % (AUTO) 0 % (1-7); LYMPHOCYTES # (AUTO) 1.04 x10^3/uL (1-3.4); LYMPHOCYTES % (AUTO) 11 % (22-44); MD NO; MEAN CORPUSCULAR HEMOGLOBIN 28.8 pg (27.0-34.8); MEAN CORPUSCULAR HGB CONC 32.5 g/dL (32.4-35.8); MEAN CORPUSCULAR VOLUME 88.6 fL (80-100); MEAN PLATELET VOLUME 8.7 fL (7.4-10.4); MONOCYTES # (AUTO) 0.81 x10^3/uL (0.2-0.8); MONOCYTES % (AUTO) 9 % (2-9); NEUTROPHILS # (AUTO) 7.36 x10^3/uL (1.8-6.8); NEUTROPHILS % (AUTO) 80 % (42-75); PLATELET COUNT 163 x10^3/uL (130-400); RED BLOOD COUNT 4.11 x10^6/uL (3.82-5.3); RED CELL DISTRIBUTION WIDTH 14.3 % (9.6-15.2)
[2017-10-13 05:45] LABS: ALBUMIN 2.3 g/dL (3.4-5.0); ANION GAP 6 mmol/L (5-15); CALCIUM 8.4 mg/dL (8.5-10.1); CHLORIDE 108 mmol/L (98-107)
[2017-10-13 05:47] LABS: CREATININE 0.64 mg/dL (0.55-1.02)
[2017-10-13] MEDS: ALBUTEROL/IPRATROPIUM 2.5MG/0.5MG, 3 ML NPPB SCH ×4 (06:35→19:15)
[2017-10-13] MEDS: BISACODYL 5 MG EC TABLET PO SCH (07:24)
[2017-10-13] MEDS: FLUTICASONE/VILANTEROL 200-25MCG/INH INH SCH ×2 (07:57→08:06)
[2017-10-13] MEDS: SODIUM CHLORIDE FLUSH 10ML SYR IVF SCH ×2 (07:58→21:01)
[2017-10-13] MEDS: GUAIFENESIN ER 600 MG TABLET PO SCH ×2 (07:58→21:01)
[2017-10-13] MEDS: OMEPRAZOLE 20 MG CAPSULE.DR PO SCH (07:58)
[2017-10-13] MEDS: RIVAROXABAN 15 MG TABLET PO SCH (07:59)
[2017-10-13] MEDS: AMIODARONE 200 MG TABLET PO SCH ×2 (07:59→21:01)
[2017-10-13] MEDS: DILTIAZEM CD 180 MG CAP.ER.24H PO SCH (07:59)
[2017-10-13] MEDS: DOXYCYCLINE 100MG TABLET PO SCH ×2 (07:59→21:01)
[2017-10-13] MEDS: TEMPLATE NON-FORMULARY MED. (Tiotropium Bromide** (Spiriva**) 18 MCG) INH SCH (08:00)
[2017-10-13 08:13] VITALS: BP 96/58
[2017-10-13 14:16] VITALS: BP 111/64
[2017-10-13] MEDS ORDERED: DOXY100T PO (14:43)
[2017-10-13] MEDS ORDERED: AMIO200T42 PO (14:43)
[2017-10-13] MEDS ORDERED: CEFD300C37 PO (14:43)
[2017-10-13] MEDS ORDERED: PRED10TA PO (14:46)
[2017-10-13] MEDS: CEFTRIAXONE 1,000 MG in SODIUM CHLORIDE 0.9% 50 ML IV SCH (18:24)
[2017-10-13 19:36] VITALS: BP 128/65
[2017-10-14 01:14] VITALS: BP 143/73
[2017-10-14] MEDS: ALBUTEROL/IPRATROPIUM 2.5MG/0.5MG, 3 ML NPPB SCH ×3 (06:37→15:00)
[2017-10-14 07:04] VITALS: BP 130/79
[2017-10-14] MEDS: FLUTICASONE/VILANTEROL 200-25MCG/INH INH SCH (09:00)
[2017-10-14] MEDS: SODIUM CHLORIDE FLUSH 10ML SYR IVF SCH (09:04)
[2017-10-14] MEDS: DILTIAZEM CD 180 MG CAP.ER.24H PO SCH (09:04)
[2017-10-14] MEDS: AMIODARONE 200 MG TABLET PO SCH (09:11)
[2017-10-14] MEDS: GUAIFENESIN ER 600 MG TABLET PO SCH (09:11)
[2017-10-14] MEDS: OMEPRAZOLE 20 MG CAPSULE.DR PO SCH (09:11)
[2017-10-14] MEDS: RIVAROXABAN 15 MG TABLET PO SCH (09:11)
[2017-10-14] MEDS: BISACODYL 5 MG EC TABLET PO SCH (09:11)
[2017-10-14] MEDS: DOXYCYCLINE 100MG TABLET PO SCH (09:11)
[2017-10-14 13:50] VITALS: BP 124/69
== END 2017-10-14 18:48 | DRG 193 ==
LOC: ED 14:51 → EDIP 15:04 → 4NOR 15:29 → 4EST 10-08 14:25 → 5SO 10-09 14:45
PROVIDERS: ADMIT Internal Medicine; ATTEND Internal Medicine
PROC: B24BZZ4 Ultrasonography of Heart with Aorta, Transesophageal (ICD-10-PCS; 2017-10-10)
PROC: 5A2204Z Restoration of Cardiac Rhythm, Single (ICD-10-PCS; principal; 2017-10-10 12:00)
DX: J18.9 Pneumonia, unspecified organism (principal); J96.21 Acute and chronic respiratory failure with hypoxia; I48.92 Unspecified atrial flutter; E44.1 Mild protein-calorie malnutrition; J44.1 Chronic obstructive pulmonary disease with (acute) exacerbation; D68.69 Other thrombophilia; J44.0 Chronic obstructive pulmonary disease with (acute) lower respiratory infection; J90 Pleural effusion, not elsewhere classified; F17.210 Nicotine dependence, cigarettes, uncomplicated; Z66 Do not resuscitate; K59.00 Constipation, unspecified; C50.919 Malignant neoplasm of unspecified site of unspecified female breast; C76.2 Malignant neoplasm of abdomen; E83.42 Hypomagnesemia; E03.9 Hypothyroidism, unspecified; I95.9 Hypotension, unspecified; E87.6 Hypokalemia; I07.1 Rheumatic tricuspid insufficiency; I11.9 Hypertensive heart disease without heart failure; I48.91 Unspecified atrial fibrillation; Z90.12 Acquired absence of left breast and nipple; Z86.73 Personal history of transient ischemic attack (TIA), and cerebral infarction without residual deficits; Z85.3 Personal history of malignant neoplasm of breast; Z82.3 Family history of stroke; E05.90 Thyrotoxicosis, unspecified without thyrotoxic crisis or storm; Z90.89 Acquired absence of other organs; Z79.899 Other long term (current) drug therapy; Z68.24 Body mass index [BMI] 24.0-24.9, adult
CPT/HCPCS: 36415; 71045; 80048; 80053; 80162; 82040; 83605; 83735; 83880; 84100; 84439; 84443; 84484; 85025; 85610; 85730; 87040; 92960; 93005; 93306; 93312; 93321; 93325; 94640; 94667; 94668; 96374; 96375; J0696; J1650; J2704; J7060; J7620; J0282; J1160; J2930; J7040; J7050; J7512

== ENCOUNTER 2018-11-06 16:11 | Inpatient (IN) | payer MEDICARE ==
[~2018-11-06] VITALS: Ht 157.5 cm; Wt 69.4 kg
[2018-11-18 13:53] VITALS: BP 94/57
== END 2018-11-18 15:43 | DRG 551 ==
LOC: ED 17:35 → EDIP 18:39 → 3NE 19:39 → 4EST 11-07 11:20
PROVIDERS: ADMIT Internal Medicine; ATTEND Internal Medicine
DX: S22.088A Other fracture of T11-T12 vertebra, initial encounter for closed fracture (principal); R53.2 Functional quadriplegia; J96.10 Chronic respiratory failure, unspecified whether with hypoxia or hypercapnia; D68.69 Other thrombophilia; J98.11 Atelectasis; E44.0 Moderate protein-calorie malnutrition; E03.9 Hypothyroidism, unspecified; G89.29 Other chronic pain; I11.9 Hypertensive heart disease without heart failure; I48.91 Unspecified atrial fibrillation; J43.9 Emphysema, unspecified; K46.9 Unspecified abdominal hernia without obstruction or gangrene; K59.00 Constipation, unspecified; M81.0 Age-related osteoporosis without current pathological fracture; R13.10 Dysphagia, unspecified; W18.30XA Fall on same level, unspecified, initial encounter; Y92.009 Unspecified place in unspecified non-institutional (private) residence as the place of occurrence of the external cause; Y93.89 Activity, other specified; Y99.8 Other external cause status; Z66 Do not resuscitate; Z82.3 Family history of stroke; Z85.3 Personal history of malignant neoplasm of breast; Z86.73 Personal history of transient ischemic attack (TIA), and cerebral infarction without residual deficits; Z87.891 Personal history of nicotine dependence; Z90.12 Acquired absence of left breast and nipple; Z91.81 History of falling; Z99.81 Dependence on supplemental oxygen; R91.1 Solitary pulmonary nodule; Z68.28 Body mass index [BMI] 28.0-28.9, adult
CPT/HCPCS: 36415; 70450; 71045; 71260; 72128; 72131; 72148; 74018; 80048; 80053; 80069; 81003; 83735; 83880; 84443; 85025; 85610; 85730; 93005; 93306; 94640; 99285; G0378; J1170; J1885; J2405; J3010; J3480; J7613; J7626; Q0162; C9113; J1940; J7030; J7050

== ENCOUNTER 2018-11-18 20:15 | Inpatient (IN) | payer MEDICARE ==
[~2018-11-18] VITALS: Ht 157.5 cm; Wt 69.0 kg
[2018-11-20 06:56] VITALS: BP 155/77
== END 2018-11-23 14:25 | disposition expired | DRG 871 ==
LOC: ED 22:52 → EDIP 23:18 → 5SO 11-19 00:11 → 3NW 11-20 12:40
PROVIDERS: ADMIT Internal Medicine; ATTEND Internal Medicine
DX: A41.9 Sepsis, unspecified organism (principal); J96.21 Acute and chronic respiratory failure with hypoxia; J69.0 Pneumonitis due to inhalation of food and vomit; G93.41 Metabolic encephalopathy; R65.21 Severe sepsis with septic shock; I48.92 Unspecified atrial flutter; M48.54XA Collapsed vertebra, not elsewhere classified, thoracic region, initial encounter for fracture; Z88.5 Allergy status to narcotic agent; E03.9 Hypothyroidism, unspecified; E86.0 Dehydration; I10 Essential (primary) hypertension; I48.2 Chronic atrial fibrillation; J43.9 Emphysema, unspecified; R13.10 Dysphagia, unspecified; R29.6 Repeated falls; Z66 Do not resuscitate; Z79.01 Long term (current) use of anticoagulants; Z82.3 Family history of stroke; Z85.3 Personal history of malignant neoplasm of breast; Z86.73 Personal history of transient ischemic attack (TIA), and cerebral infarction without residual deficits; Z87.891 Personal history of nicotine dependence; Z90.12 Acquired absence of left breast and nipple; Z99.81 Dependence on supplemental oxygen; Z51.5 Encounter for palliative care; R91.1 Solitary pulmonary nodule
CPT/HCPCS: 36415; 36600; 71045; 80048; 80053; 80202; 82803; 83605; 84145; 84484; 85025; 87040; 87181; 93005; 94640; 99291; G0378; J1170; J1885; J2543; J3370; J7613; J7620; J7626; J2060; J7030; J7040; J7050